=== PATIENT | female | born 1995 | race Two or more races ===

== ENCOUNTER 2025-04-03 07:42 | Emergency (ER) | payer OTHER ==
[~2025-04-03] VITALS: Ht 175.3 cm; Wt 76.7 kg
[2025-04-03] MEDS ORDERED: DEXAMETHASONE SODIUM PHOSPHATE 4 MG/ML VIAL IM STA (08:53)
[2025-04-03] MEDS ORDERED: DEXAMETHASONE SODIUM PHOSPHATE 4 MG/ML VIAL ONE (09:03)
[2025-04-03 09:42] LABS: BASO % 0.5 % (0.1-1.2); EOS # 0.08 (0.04-0.54); EOS % 0.9 % (0.7-7.0); HEMATOCRIT 37.6 % (34.1-44.9); HEMOGLOBIN 12.4 g/dL (11.2-15.7); LYMPH # 2.11 (1.18-3.74); LYMPH % 24.8 % (19.3-53.1); MEAN CORPUSCULAR HEMOGLOBIN 29.9 pg (25.6-32.2); MONO # 0.84 (0.24-0.82); MONO % 9.9 % (4.7-12.5); NEUT # 5.42 (1.56-6.13); NEUT % 63.7 % (34.0-71.1); PLATELET COUNT 251 K/uL (163-369); RED BLOOD COUNT 4.15 M/uL (3.93-5.22); RED CELL DISTRIBUTION WIDTH 12.9 % (11.6-14.4)
[2025-04-03 10:25] LABS: COVID-19 AG NEGATIVE (NEGATIVE)
[2025-04-03 10:26] LABS: INFLUENZA A AG NEGATIVE (NEGATIVE); INFLUENZA B AG NEGATIVE (NEGATIVE)
== END 2025-04-03 11:12 | disposition home or self-care (01) ==
LOC: ER 07:56
PROVIDERS: General Practice
DX: R42 Dizziness and giddiness (principal); Z20.822 Contact with and (suspected) exposure to COVID-19